=== PATIENT | female | born 1980 | race Caucasian/White ===

== ENCOUNTER 2021-01-17 13:26 | Day surgery (SDC) | payer MEDICAID, OTHER ==
[2021-01-17] MEDS ORDERED: Sodium Chloride 0.9(Preservative Free) 10 ML IJ ONE (13:27)
[2021-01-17] MEDS ORDERED: Depo-Medrol 40 MG/ML IM ONE (13:27)
[2021-01-17] MEDS ORDERED: Versed 2 MG/2 ML Injection ONE (14:16)
[2021-01-17] MEDS ORDERED: Lactated Ringers 1,000 ML IV ONE (15:59)
--- NOTE | 2021-01-18 11:54 | XRAY ---
19 seconds fluoroscopy time in surgery for right L4-S1 transforaminal JINA.
--- NOTE | 2021-01-21 00:39 | XRAY ---
Indication: Right L4-S1 transforaminal JINA. Intraoperative fluoroscopy was provided for 19 seconds. 2 digital spot images submitted for interpretation demonstrate posterior needle tips projected over the expected course of the right L4 and L5 nerve roots. A small amount of contrast has been injected for needle tip placement. Correlate with intraoperative findings/report.
== END 2021-01-17 15:40 | disposition home or self-care (01) ==
LOC: SDC-PAIN 13:26
PROVIDERS: ATTEND Psychiatry & Neurology Pain Medicine
DX: M54.16 Radiculopathy, lumbar region (principal); Z79.899 Other long term (current) drug therapy
CPT/HCPCS: 64483; 64484; 72100; 77003; 84703; J1030; J2250; Q9966

== ENCOUNTER 2021-02-28 13:45 | Day surgery (SDC) | payer OTHER ==
[2021-02-28] MEDS ORDERED: Sodium Chloride 0.9(Preservative Free) 10 ML IJ ONE (13:46)
[2021-02-28] MEDS ORDERED: Xylocaine 1% Vial 30 ML PF IJ ONE (13:46)
[2021-02-28] MEDS ORDERED: Depo-Medrol 40 MG/ML IM ONE (13:46)
[2021-02-28] MEDS ORDERED: DIPRIVAN 200 MG/20 ML IV ONE (14:25)
--- NOTE | 2021-02-28 15:18 | XRAY ---
Indication: Lumbar JINA. Intraoperative fluoroscopy provided for 12 seconds. Single lateral digital spot image submitted for interpretation demonstrates posterior needle tip projecting just posterior to the L4-L5 interspace. Small amount of contrast injected for nuclear placement.. Correlate with intraoperative findings/report.
--- NOTE | 2021-02-28 15:20 | XRAY ---
12 seconds fluoroscopy time in surgery for lumbar JINA.
[2021-02-28] MEDS ORDERED: Lactated Ringers 1,000 ML IV ONE (15:47)
== END 2021-02-28 15:05 | disposition home or self-care (01) ==
LOC: SDC-PAIN 13:45
PROVIDERS: ATTEND Psychiatry & Neurology Pain Medicine
DX: M54.16 Radiculopathy, lumbar region (principal); Z79.899 Other long term (current) drug therapy
CPT/HCPCS: 62323; 72100; 77003; 84703; J1030; J2001; J2704; Q9966

== ENCOUNTER 2021-03-14 15:03 | Day surgery (SDC) | payer OTHER ==
[2021-03-14] MEDS ORDERED: Depo-Medrol 80 MG/ML IM ONE (15:04)
[2021-03-14] MEDS ORDERED: Xylocaine 1% Vial 30 ML PF IJ ONE (15:04)
[2021-03-14] MEDS ORDERED: BUPIVACAINE 0.5% VIAL IJ ONE (15:04)
[2021-03-14] MEDS ORDERED: Xylocaine-Mpf 2% 5 Ml Vial ONE (16:39)
[2021-03-14] MEDS ORDERED: Lactated Ringers 1,000 ML IV ONE (17:30)
[2021-03-14] MEDS ORDERED: DIPRIVAN 200 MG/20 ML IV ONE (18:05)
--- NOTE | 2021-03-14 19:33 | XRAY ---
Indication: Right hip and greater trochanter bursa injection. Intraoperative fluoroscopy provided for 27 seconds. 2 digital spot images submitted for interpretation demonstrates needle tips lateral to the right femur neck and lateral to the greater trochanter. Small amount of contrast injected for both needle tip placement. Correlate with intraoperative findings/report.
--- NOTE | 2021-03-15 10:48 | XRAY ---
27 seconds of fluoroscopy was used in surgery for a right hip intra-articular and greater trochanteric bursa injections.
== END 2021-03-14 18:20 | disposition home or self-care (01) ==
LOC: SDC-PAIN 15:03
PROVIDERS: ATTEND Psychiatry & Neurology Pain Medicine
DX: M16.11 Unilateral primary osteoarthritis, right hip (principal); M70.61 Trochanteric bursitis, right hip; Z79.899 Other long term (current) drug therapy
CPT/HCPCS: 20610; 73502; 77002; 84703; J1040; J2001; J2704; Q9966

== ENCOUNTER 2021-07-11 10:02 | Day surgery (SDC) | payer MEDICAID, OTHER ==
[2021-07-11] MEDS ORDERED: Depo-Medrol 40 MG/ML IM ONE (10:03)
[2021-07-11] MEDS ORDERED: Decadron 4 MG INJ IV ONE (10:03)
[2021-07-11] MEDS ORDERED: Xylocaine 1% Vial 30 ML PF IJ ONE (10:03)
[2021-07-11] MEDS ORDERED: Sodium Chloride 0.9% 10 ML FLUSH Syringe IJ ONE (10:03)
[2021-07-11] MEDS ORDERED: DIPRIVAN 200 MG/20 ML IV ONE ×2 (12:14→12:28)
[2021-07-11] MEDS ORDERED: Lactated Ringers 1,000 ML IV ONE (13:14)
--- NOTE | 2021-07-11 13:31 | XRAY ---
Indication: Left piriformis injection. Intraoperative fluoroscopy provided for 14 seconds. Single digital spot image submitted for interpretation demonstrates posterior needle tip projecting over the expected left piriformis muscle. Small amount of contrast injected for needle tip placement. Correlate with intraoperative findings/report.
--- NOTE | 2021-07-11 13:31 | XRAY ---
Indication: Left L4-S1 transforaminal JINA. Intraoperative fluoroscopy provided for 29 seconds. 4 digital spot image submitted for interpretation demonstrates posterior needle tips projecting over the expected left L4 and L5 nerve roots. Small amount of contrast injected for needle Placement. Correlate with intraoperative findings/report.
--- NOTE | 2021-07-11 13:46 | XRAY ---
14 seconds fluoroscopy time in surgery for injection of the left piriformis muscle.
--- NOTE | 2021-07-11 13:56 | XRAY ---
29 seconds fluoroscopy time in surgery for left L4-S1 transforaminal JINA.
== END 2021-07-11 12:27 | disposition home or self-care (01) ==
LOC: SDC-PAIN 10:02
PROVIDERS: ATTEND Psychiatry & Neurology Pain Medicine
DX: M54.16 Radiculopathy, lumbar region (principal); M79.18 Myalgia, other site; I10 Essential (primary) hypertension; Z79.899 Other long term (current) drug therapy
CPT/HCPCS: 20552; 36415; 64483; 64484; 72020; 72100; 77002; 77003; 81025; J1030; J1100; J2001; J2704; Q9966